=== PATIENT | male | born 1980 | race Two or more races ===

== ENCOUNTER 2016-09-20 18:38 | Emergency (ER) | payer MEDICAID ==
[~2016-09-20] VITALS: Ht 180.3 cm; Wt 120.2 kg
[2016-09-20 21:15] VITALS: BP 129/84
[2016-09-20] MEDS ORDERED: cefTRIAXone SOD 1,000 MG VL IM ONE (22:00)
== END 2016-09-20 22:26 | disposition home or self-care (01) ==
LOC: ER 18:50
DX: L03.312 Cellulitis of back [any part except buttock and flank] (principal); G89.29 Other chronic pain; M54.5 Low back pain; Z88.6 Allergy status to analgesic agent; Z48.01 Encounter for change or removal of surgical wound dressing
CPT/HCPCS: 96372; 99283; J0696